=== PATIENT | female | born 1975 | race African-American/Black ===

== ENCOUNTER 2022-04-12 11:47 | Emergency (ER) | payer MEDICAID ==
[~2022-04-12] VITALS: Ht 157.5 cm; Wt 61.8 kg
[2022-04-12] MEDS ORDERED: cloNIDine HCL 0.1 MG TAB PO ONE (12:30)
[2022-04-12 13:47] VITALS: BP 158/95
== END 2022-04-12 13:50 | disposition home or self-care (01) ==
LOC: EDBD 11:47 → ER 11:54
DX: I16.0 Hypertensive urgency (principal); I10 Essential (primary) hypertension; F17.210 Nicotine dependence, cigarettes, uncomplicated; Z98.51 Tubal ligation status